=== PATIENT | female | born 1935 | race Hispanic/Latino ===

== ENCOUNTER 2019-04-04 22:31 | Emergency (ER) | payer MEDICARE ==
[2019-04-04] MEDS ORDERED: ERYTHROMYCIN BASE 0.5% OPHTH OINT 1 GM TUBE ONE ×2 (22:47→23:20)
[2019-04-05] MEDS ORDERED: ERYTHROMYCIN BASE 0.5% OPHTH OINT 1 GM TUBE ONE (02:00)
== END 2019-04-05 02:12 | disposition home or self-care (01) ==
LOC: EDH 22:31
DX: Z77.098 Contact with and (suspected) exposure to other hazardous, chiefly nonmedicinal, chemicals (principal); Z88.6 Allergy status to analgesic agent